=== PATIENT | female | born 1960 | race Caucasian/White ===

== ENCOUNTER 2020-09-21 04:01 | Outpatient (CLI) | payer OTHER, SELFPAY ==
[2020-10-03 14:57] LABS: Misc Referral (MAYO) See Comments
== END 2020-09-21 04:02 | disposition home or self-care (01) ==
LOC: LBO 04:02
PROVIDERS: PCP Student in an Organized Health Care Education/Training Program; Visit Provider Allergy & Immunology
DX: T78.2XXD Anaphylactic shock, unspecified, subsequent encounter (principal)
CPT/HCPCS: 36415; 82542; 83520; 84150